=== PATIENT | female | born 1965 | race Caucasian/White ===

== ENCOUNTER 2018-09-13 08:28 | Day surgery (SDC) | payer OTHER ==
[~2018-09-13] VITALS: Ht 165.1 cm; Wt 107.9 kg
[2018-09-13 09:52] VITALS: Ht 165.1 cm; Wt 107.9 kg
[2018-09-13] MEDS ORDERED: METFORMIN (09:55)
[2018-09-13] MEDS ORDERED: HCTZ (09:55)
[2018-09-13] MEDS ORDERED: INSULIN (09:55)
[2018-09-13 10:21] VITALS: BP 146/83; PULSE 89; RESP 18
--- NOTE | 2018-09-13 10:27 | PREAC ---
Date/Time of Note Date/Time of Note DATE: 09/13/18 TIME: 10:26 Anesthesia Eval and Record Evaluation Time Pre-Procedure Interview DATE: 09/13/18 TIME: 10:26 Age 52 Sex female NPO: 8 hrs Preoperative diagnosis dyspepsia, constipation Planned procedure EGD, colonoscopy Past Medical History Past Medical History: Includes Cardio: HTN Endo: Diabetes GI: GERD, Obesity Surgery & Anesthesia Issues No known issue Meds Anticoagulation: No Beta Willy within 24 hr: No Reason Beta Willy not given: Pt. not on B-Willy Reported Medications [Hctz] No Conflict Check 09/13/18 [Metformin] No Conflict Check 09/13/18 [Insulin] No Conflict Check 09/13/18 Meds reviewed: Yes Allergies Coded Allergies: No Known Drug Allergy (Verified Allergy, Unknown, 09/13/18) Allergies Reviewed: Yes Labs/Studies Labs Reviewed: Reviewed by anesthesiologist test: N/A Studies: ECG (n/a), CXR (n/a) Pre-procedure Exam Last vitals Vital Signs Date Temp Pulse Resp B/P (MAP) Pulse Ox O2 O2 Flow FiO2 Time Delivery Rate 09/13/18 98.0 89 18 146/83 98 Room Air 10:21 (104) Airway: Adequate mouth opening Mallampati: Mallampati I Teeth: Normal Lung: Normal Heart: Normal ASA Physical Status ASA physical status: 2 Emergency: None Planned Anesthetic General/MAC: MAC Planned Pain Management Parenteral pain med Pre-operative Attestations Prior to commencing anesthesia and surgery, the patient was re-evaluated, there was verification of: *The patient's identity *The results of appropriate recent lab work and preoperative vital signs *The above evaluation not changing prior to induction *Anesthetic plan, risk benefits, alternative and complications discussed with patient/family; questions answered; patient/family understands, accepts and wishes to proceed. DHRUV BRITO MD Sep 13, 2018 10:27
[2018-09-13] MEDS ORDERED: PROPOFOL 20 ML ONE ×2 (10:29→10:55)
[2018-09-13] MEDS ORDERED: FENTAnyl 50 MCG/ML VIAL ONE (10:29)
[2018-09-13] MEDS ORDERED: ONDANSETRON 4 MG INJ IV PRN (10:30)
[2018-09-13] MEDS ORDERED: ACETAMINOPHEN 1000MG/100ML IV 100 ML IVPB ONE (11:30)
[2018-09-13 11:49] VITALS: BP 156/88; RESP 20
--- NOTE | 2018-09-13 12:24 | PAC ---
Date/Time of Note Date/Time of Note DATE: 09/13/18 TIME: 12:24 Post-Anesthesia Notes Post-Anesthesia Note Last documented vital signs Vital Signs Date Temp Pulse Resp B/P (MAP) Pulse Ox O2 O2 Flow FiO2 Time Delivery Rate 09/13/18 98.0 87 20 156/88 97 11:49 (110) 09/13/18 98.0 89 Room Air 10:21 Activity: WNL Respiratory function: WNL Cardiovascular function: WNL Mental status: Baseline Pain reasonably controlled: Yes Hydration appropriate: Yes Nausea/Vomiting absent: No DHRUV BRITO MD Sep 13, 2018 12:24
== END 2018-09-13 12:03 | disposition home or self-care (01) ==
LOC: GIL 08:28
PROVIDERS: ATTEND Internal Medicine Gastroenterology
DX: Z12.11 Encounter for screening for malignant neoplasm of colon (principal); D12.0 Benign neoplasm of cecum; K29.00 Acute gastritis without bleeding; I10 Essential (primary) hypertension; E11.9 Type 2 diabetes mellitus without complications
CPT/HCPCS: 43239; 45385; 82962; 88305; 88312; J0131; Z7610; J3010